=== PATIENT | male | born 1965 | race African-American/Black ===

== ENCOUNTER 2019-08-17 15:35 | Inpatient (IN) ==
[2019-08-17] MEDS ORDERED: THIAMINE INJ 100 MG, FOLIC ACID INJ 1 MG, MAGNESIUM SULF INJ 2 GM, MULTIVITAMIN INJ 10 ... IV STA (17:01)
[2019-08-17 18:09] LABS: Hemoglobin 10.9 GM/DL (14.0-18.0); Immature Granulocytes % 0.5 %; Immature Granulocytes Absolute 0.02 #; Lymphocytes # 0.6 10*3/uL (1.4-4.0); Lymphocytes % 13.3 % (21.2-54.2); Mean Corpuscular Volume 95.4 FL (87-102); Mean Platelet Volume 11.8 FL (9.6-12.0); Monocytes % 6.3 % (1.7-12.7); Neutrophils % 78.9 % (38.7-73.9); Platelet Count 58 T/CUMM (130-400); Red Blood Count 3.46 MC/CUMM (3.8-5.5); Red Cell Distribution Width 13.3 % (9.3-17.3); White Blood Count 4.1 T/CUMM (4-12)
[2019-08-17 18:18] LABS: PT Patient Result 10.8 SECS (9.6-12.2); Partial Thromboplastin Time 23.8 SECS (20.8-36.0)
[2019-08-17 18:28] LABS: Platelet Estimate Decreased
[2019-08-17 18:59] LABS: Alkaline Phosphatase 222 U/L (45-117); Calcium 8.5 MG/DL (8.5-10.1)
[2019-08-17 19:00] LABS: Alanine Aminotransferase 81 U/L (16-61); Albumin 3.4 G/DL (3.4-5.0); Aspartate Amino Transferase 101 U/L (0-37); Blood Urea Nitrogen 17 MG/DL (7-18); Estimated Glom Filtration Rate 96 ML/MIN; Glucose 171 MG/DL (74-106); Osmolality,Calculated 280.7 MOS/KG (273-304); Total Protein 6.9 G/DL (6.4-8.3)
[2019-08-17 19:01] LABS: Troponin I < 0.015 NG/ML (0.00-0.045)
[2019-08-17 19:10] LABS: Thyroid Stimulating Hormone 8.62 uIU/ml (0.358-3.74)
[2019-08-17 19:15] LABS: Free T4 (Free Thyroxine) 6.1 NG/DL (0.76-1.46)
[2019-08-17 19:27] LABS: Apearance,Urine Clear (Clear); Glucose,Urine (UA) 50 mg/dL (Negative); Ketones,Urine 80 mg/dL (Negative); Protein,Urine 100 MG/DL; Urine Color Yellow (Yellow)
[2019-08-17 19:28] LABS: Bacteria,Urine Occasional /HPF (Few); Bilirubin,Urine Negative (Negative); Blood, Urine Small mg/dL (Negative); Hyaline Casts,Urine 3 /LPF (0-3); Mucus,Urine Occasional /LPF (Occasional); Nitrite,Urine Negative (Negative); RBC,Urine 2 /HPF (0-4); Squamous Epithelial Cell,Urine Occasional /HPF (0-10); WBC,Urine 1 /HPF (0-6)
[2019-08-17 19:29] LABS: Barbiturates Screen,Urine Negative (Negative); Benzodiazepines Screen,Urine Negative (Negative); Cannabinoid Screen,Urine Negative (Negative); Opiate Screen,Urine Negative (Negative); Phencyclidine Screen,Urine Negative (Negative)
[2019-08-18] MEDS ORDERED: ONDANSETRON 4 MG/2 ML VIAL IV PRN (03:00)
[2019-08-18] MEDS ORDERED: LORazepam 2 MG/1 ML VIAL IV PRN (03:00)
[2019-08-18] MEDS ORDERED: traZODone 50 MG TABLET PO PRN (03:00)
[2019-08-18] MEDS ORDERED: ACETAMINOPHEN 325 MG TABLET PO PRN (03:04)
[2019-08-18] MEDS ORDERED: PROMETHAZINE 25 MG/1 ML VIAL IM PRN (03:04)
[2019-08-18 04:46] LABS: Basophils % 1.1 % (0.0-0.8); Eosinophils % 0.3 % (0.00-10.9); Hematocrit 26.8 VOL% (42.0-52.0); Hemoglobin 9.2 GM/DL (14.0-18.0); Immature Granulocytes % 0.6 %; Immature Granulocytes Absolute 0.02 #; Lymphocytes # 1.2 10*3/uL (1.4-4.0); Mean Corpuscular HGB Conc 34.3 GM/DL (32-36); Mean Corpuscular Volume 92.4 FL (87-102); Mean Platelet Volume 13.1 FL (9.6-12.0); Monocytes % 7.4 % (1.7-12.7); Neutrophils % 56.6 % (38.7-73.9); Red Cell Distribution Width 12.9 % (9.3-17.3); White Blood Count 3.5 T/CUMM (4-12)
[2019-08-18 04:49] LABS: Platelet Count 49 T/CUMM (130-400)
[2019-08-18 05:09] LABS: Bilirubin,Total 1.7 MG/DL (0.2-1.0); Calcium 8.5 MG/DL (8.5-10.1); Osmolality,Calculated 275.7 MOS/KG (273-304); Total Protein 6.1 G/DL (6.4-8.3)
[2019-08-18 05:12] LABS: Hypochromasia 1+; Platelet Estimate Decreased
[2019-08-18] MEDS: NICOTINE 21 MG/24 HR PATCH TRANSDERM PRN (05:38)
[2019-08-18] MEDS: SODIUM CHLORIDE 0.9% 1,000 ML IV SCH ×2 (05:38→12:18)
[2019-08-18] MEDS: chlordiazePOXIDE 25 MG CAPSULE PO SCH ×4 (05:41→21:35)
[2019-08-18] MEDS: QUEtiapine 100 MG TABLET PO SCH ×2 (05:42→21:35)
[2019-08-18] MEDS: CIPROFLOXACIN INJ 400 MG in PREMIX 1 EACH IV SCH ×2 (05:42→15:03)
[2019-08-18] MEDS ORDERED: MAGNESIUM SULF RIDER 2 GM in PREMIX 1 EACH IV PRN (08:02)
[2019-08-18] MEDS ORDERED: MAGNESIUM SULF RIDER 4 GM in PREMIX 1 EACH IV PRN (08:02)
[2019-08-18] MEDS: FERROUS SULFATE 325 MG TABLET PO SCH ×3 (10:59→21:35)
[2019-08-18] MEDS: CYPROHEPTADINE 4 MG TABLET PO SCH ×3 (11:00→16:14)
[2019-08-18] MEDS: FOLIC ACID 1 MG TABLET PO SCH (11:00)
[2019-08-18] MEDS: THIAMINE 100 MG TABLET PO SCH (11:00)
[2019-08-18] MEDS: POTASSIUM CHLORIDE 20 MEQ TABLET PO PRN ×2 (11:00→13:38)
[2019-08-18] MEDS: MULTIVITAMIN (CENTRUM) TABLET PO SCH (11:01)
[2019-08-18] MEDS ORDERED: THIAMINE INJ 100 MG, FOLIC ACID INJ 1 MG, MAGNESIUM SULF INJ 2 GM, MULTIVITAMIN INJ 10 ... IV SCH (17:30)
[2019-08-18] MEDS: HydrOXYzine PAMOATE 25 MG CAPSULE PO PRN (21:35)
[2019-08-18] MEDS: LORazepam 2 MG/1 ML VIAL IV PRN (22:36)
[2019-08-19 05:30] LABS: Basophils % 0.8 % (0.0-0.8); Eosinophils # 0.1 10*3/uL (0.0-0.87); Eosinophils % 1.3 % (0.00-10.9); Hematocrit 27.7 VOL% (42.0-52.0); Hemoglobin 9.6 GM/DL (14.0-18.0); Immature Granulocytes % 0.5 %; Immature Granulocytes Absolute 0.02 #; Lymphocytes # 1.2 10*3/uL (1.4-4.0); Lymphocytes % 31.2 % (21.2-54.2); Mean Corpuscular HGB Conc 34.7 GM/DL (32-36); Mean Platelet Volume 12.5 FL (9.6-12.0); Monocytes % 5.5 % (1.7-12.7); Neutrophils % 60.7 % (38.7-73.9); Red Blood Count 2.98 MC/CUMM (3.8-5.5); Red Cell Distribution Width 12.7 % (9.3-17.3); White Blood Count 3.9 T/CUMM (4-12)
[2019-08-19 05:40] LABS: Platelet Count 35 T/CUMM (130-400)
[2019-08-19] MEDS: chlordiazePOXIDE 25 MG CAPSULE PO SCH ×3 (05:48→21:38)
[2019-08-19] MEDS: CIPROFLOXACIN INJ 400 MG in PREMIX 1 EACH IV SCH ×2 (05:48→15:38)
[2019-08-19 06:07] LABS: Anisocytosis 1+; Hypochromasia 1+; Lymphocytes 36 % (20-55); Platelet Estimate Decreased; Segmented Neutrophils 61 % (50-85); Target Cells 1+; Total Cells Counted 100
[2019-08-19] MEDS: LORazepam 2 MG/1 ML VIAL IV PRN (06:25)
[2019-08-19] MEDS: FERROUS SULFATE 325 MG TABLET PO SCH ×3 (09:26→21:38)
[2019-08-19] MEDS: FOLIC ACID 1 MG TABLET PO SCH (09:26)
[2019-08-19] MEDS: MULTIVITAMIN (CENTRUM) TABLET PO SCH (09:26)
[2019-08-19] MEDS: THIAMINE 100 MG TABLET PO SCH (09:26)
[2019-08-19] MEDS: DOCUSATE SODIUM 100 MG CAPSULE PO PRN (09:26)
[2019-08-19] MEDS: CYPROHEPTADINE 4 MG TABLET PO SCH ×3 (09:34→15:40)
[2019-08-19] MEDS: SODIUM CHLORIDE 0.9% 1,000 ML IV SCH (09:42)
[2019-08-19] MEDS ORDERED: LEVOTHYROXINE 100 MCG VIAL IV ONE (10:13)
[2019-08-19] MEDS: QUEtiapine 100 MG TABLET PO SCH (21:38)
[2019-08-20] MEDS: CIPROFLOXACIN INJ 400 MG in PREMIX 1 EACH IV SCH (03:52)
[2019-08-20] MEDS: SODIUM CHLORIDE 0.9% 1,000 ML IV SCH ×5 (04:03→20:54)
[2019-08-20 05:14] LABS: Basophils % 0.6 % (0.0-0.8); Eosinophils # 0.1 10*3/uL (0.0-0.87); Eosinophils % 2.7 % (0.00-10.9); Hematocrit 28.9 VOL% (42.0-52.0); Hemoglobin 9.8 GM/DL (14.0-18.0); Immature Granulocytes % 0.3 %; Immature Granulocytes Absolute 0.01 #; Lymphocytes # 1.2 10*3/uL (1.4-4.0); Lymphocytes % 35.2 % (21.2-54.2); Mean Corpuscular HGB Conc 33.9 GM/DL (32-36); Mean Corpuscular Volume 92.3 FL (87-102); Monocytes % 6.9 % (1.7-12.7); Neutrophils % 54.3 % (38.7-73.9); Platelet Count 43 T/CUMM (130-400); Red Blood Count 3.13 MC/CUMM (3.8-5.5); Red Cell Distribution Width 12.4 % (9.3-17.3); White Blood Count 3.3 T/CUMM (4-12)
[2019-08-20 05:43] LABS: Calcium 8.7 MG/DL (8.5-10.1); Osmolality,Calculated 276.4 MOS/KG (273-304)
[2019-08-20 06:55] LABS: Anisocytosis 1+; Band Neutrophils 2 % (0-10); Eosinophils 3 % (0-10); Hypochromasia 1+; Lymphocytes 42 % (20-55); Segmented Neutrophils 46 % (50-85); Total Cells Counted 100
[2019-08-20 06:56] LABS: Platelet Estimate Decreased; Target Cells 1+
[2019-08-20] MEDS: CYPROHEPTADINE 4 MG TABLET PO SCH ×3 (08:51→16:40)
[2019-08-20] MEDS: FOLIC ACID 1 MG TABLET PO SCH (10:43)
[2019-08-20] MEDS: LEVOTHYROXINE 100 MCG TABLET PO SCH (10:44)
[2019-08-20] MEDS: chlordiazePOXIDE 25 MG CAPSULE PO SCH (10:44)
[2019-08-20] MEDS: MULTIVITAMIN (CENTRUM) TABLET PO SCH (10:44)
[2019-08-20] MEDS: THIAMINE 100 MG TABLET PO SCH (10:44)
[2019-08-20] MEDS: FERROUS SULFATE 325 MG TABLET PO SCH ×3 (10:44→21:32)
[2019-08-20] MEDS ORDERED: methylPREDNISolone SOD SUC 40 MG/1 ML VIAL IV ONE (13:04)
[2019-08-20] MEDS: metroNIDAZOLE 500 MG TABLET PO SCH ×2 (14:40→21:32)
[2019-08-20] MEDS: LORazepam 2 MG/1 ML VIAL IV PRN (18:42)
[2019-08-20] MEDS: POTASSIUM CHLORIDE 20 MEQ TABLET PO PRN (21:32)
[2019-08-20] MEDS: QUEtiapine 100 MG TABLET PO SCH (21:32)
[2019-08-20] MEDS: CIPROFLOXACIN 500 MG TABLET PO SCH (22:00)
[2019-08-21] MEDS: POTASSIUM CHLORIDE 20 MEQ TABLET PO PRN ×5 (01:00→17:06)
[2019-08-21 03:56] LABS: Basophils % 0.2 % (0.0-0.8); Eosinophils # 0.1 10*3/uL (0.0-0.87); Eosinophils % 0.9 % (0.00-10.9); Hematocrit 26.9 VOL% (42.0-52.0); Hemoglobin 9.2 GM/DL (14.0-18.0); Immature Granulocytes % 0.5 %; Immature Granulocytes Absolute 0.03 #; Lymphocytes # 1.3 10*3/uL (1.4-4.0); Lymphocytes % 23.6 % (21.2-54.2); Mean Corpuscular HGB Conc 34.2 GM/DL (32-36); Mean Corpuscular Volume 92.4 FL (87-102); Mean Platelet Volume 12.1 FL (9.6-12.0); Neutrophils % 66.8 % (38.7-73.9); Platelet Count 69 T/CUMM (130-400); Red Blood Count 2.91 MC/CUMM (3.8-5.5); White Blood Count 5.6 T/CUMM (4-12)
[2019-08-21 04:31] LABS: Calcium 8.8 MG/DL (8.5-10.1); Osmolality,Calculated 280.1 MOS/KG (273-304)
[2019-08-21 05:48] LABS: Eosinophils 1 % (0-10); Hypochromasia 2+; Lymphocytes 24 % (20-55); Platelet Estimate Decreased; Segmented Neutrophils 67 % (50-85); Total Cells Counted 100
[2019-08-21] MEDS: CYPROHEPTADINE 4 MG TABLET PO SCH ×3 (08:16→16:08)
[2019-08-21] MEDS: CIPROFLOXACIN 500 MG TABLET PO SCH ×2 (08:16→20:02)
[2019-08-21] MEDS: THIAMINE 100 MG TABLET PO SCH (08:16)
[2019-08-21] MEDS: metroNIDAZOLE 500 MG TABLET PO SCH ×2 (08:16→20:02)
[2019-08-21] MEDS: FERROUS SULFATE 325 MG TABLET PO SCH ×3 (08:16→20:02)
[2019-08-21] MEDS: FOLIC ACID 1 MG TABLET PO SCH (08:16)
[2019-08-21] MEDS: SODIUM CHLORIDE 0.9% 1,000 ML IV SCH ×3 (08:17→21:41)
[2019-08-21] MEDS: LEVOTHYROXINE 100 MCG TABLET PO SCH (08:21)
[2019-08-21] MEDS: MULTIVITAMIN (CENTRUM) TABLET PO SCH (08:21)
[2019-08-21] MEDS: POTASSIUM CHLORIDE 20 MEQ TABLET PO SCH ×2 (14:18→20:02)
[2019-08-21] MEDS: LORazepam 2 MG/1 ML VIAL IV PRN (19:54)
[2019-08-21] MEDS: HydrOXYzine PAMOATE 25 MG CAPSULE PO PRN (19:56)
[2019-08-21] MEDS: QUEtiapine 100 MG TABLET PO SCH (20:02)
[2019-08-22 05:30] LABS: Basophils % 0.7 % (0.0-0.8); Eosinophils # 0.1 10*3/uL (0.0-0.87); Eosinophils % 1.4 % (0.00-10.9); Hematocrit 27.9 VOL% (42.0-52.0); Hemoglobin 9.3 GM/DL (14.0-18.0); Immature Granulocytes % 0.5 %; Immature Granulocytes Absolute 0.03 #; Lymphocytes # 1.4 10*3/uL (1.4-4.0); Lymphocytes % 23.1 % (21.2-54.2); Mean Corpuscular HGB Conc 33.3 GM/DL (32-36); Mean Corpuscular Volume 95.2 FL (87-102); Mean Platelet Volume 11.4 FL (9.6-12.0); Monocytes % 14.6 % (1.7-12.7); Neutrophils % 59.7 % (38.7-73.9); Platelet Count 109 T/CUMM (130-400); Red Blood Count 2.93 MC/CUMM (3.8-5.5); Red Cell Distribution Width 13.1 % (9.3-17.3); White Blood Count 5.9 T/CUMM (4-12)
[2019-08-22] MEDS: SODIUM CHLORIDE 0.9% 1,000 ML IV SCH (05:50)
[2019-08-22 06:05] LABS: Albumin 2.8 G/DL (3.4-5.0); Bilirubin,Total 1.3 MG/DL (0.2-1.0); Calcium 8.5 MG/DL (8.5-10.1); Osmolality,Calculated 271.7 MOS/KG (273-304)
[2019-08-22] MEDS: LEVOTHYROXINE 100 MCG TABLET PO SCH (06:30)
[2019-08-22] MEDS: metroNIDAZOLE 500 MG TABLET PO SCH ×2 (09:55→21:32)
[2019-08-22] MEDS: MULTIVITAMIN (CENTRUM) TABLET PO SCH (09:55)
[2019-08-22] MEDS: CIPROFLOXACIN 500 MG TABLET PO SCH ×2 (09:55→21:32)
[2019-08-22] MEDS: THIAMINE 100 MG TABLET PO SCH ×3 (09:55→21:32)
[2019-08-22] MEDS: POTASSIUM CHLORIDE 20 MEQ TABLET PO SCH ×2 (09:55→21:31)
[2019-08-22] MEDS: FERROUS SULFATE 325 MG TABLET PO SCH ×3 (09:55→21:32)
[2019-08-22] MEDS: FOLIC ACID 1 MG TABLET PO SCH (09:55)
[2019-08-22] MEDS: CYPROHEPTADINE 4 MG TABLET PO SCH ×3 (09:55→18:43)
[2019-08-22] MEDS: chlordiazePOXIDE 25 MG CAPSULE PO PRN (15:30)
[2019-08-22] MEDS: QUEtiapine 100 MG TABLET PO SCH (21:31)
[2019-08-22] MEDS: HydrOXYzine PAMOATE 25 MG CAPSULE PO PRN (21:32)
[2019-08-23] MEDS: chlordiazePOXIDE 25 MG CAPSULE PO PRN ×2 (04:35→14:34)
[2019-08-23 06:21] LABS: Albumin 3.1 G/DL (3.4-5.0); Bilirubin,Total 0.8 MG/DL (0.2-1.0); Calcium 9.1 MG/DL (8.5-10.1); Osmolality,Calculated 275.4 MOS/KG (273-304); Total Protein 6.9 G/DL (6.4-8.3)
[2019-08-23 07:41] LABS: Basophils % 0.9 % (0.0-0.8); Eosinophils # 0.1 10*3/uL (0.0-0.87); Eosinophils % 1.8 % (0.00-10.9); Hematocrit 29.3 VOL% (42.0-52.0); Hemoglobin 9.9 GM/DL (14.0-18.0); Immature Granulocytes % 0.7 %; Immature Granulocytes Absolute 0.03 #; Lymphocytes # 1.1 10*3/uL (1.4-4.0); Lymphocytes % 24.6 % (21.2-54.2); Mean Corpuscular HGB Conc 33.8 GM/DL (32-36); Mean Corpuscular Volume 94.8 FL (87-102); Mean Platelet Volume 10.9 FL (9.6-12.0); Monocytes % 22.6 % (1.7-12.7); Neutrophils % 49.4 % (38.7-73.9); Platelet Count 163 T/CUMM (130-400); Red Blood Count 3.09 MC/CUMM (3.8-5.5); Red Cell Distribution Width 13.4 % (9.3-17.3); White Blood Count 4.6 T/CUMM (4-12)
[2019-08-23 08:00] LABS: Eosinophils 1 % (0-10); Lymphocytes 23 % (20-55); Platelet Estimate Adequate; Segmented Neutrophils 61 % (50-85); Total Cells Counted 100
[2019-08-23] MEDS: SODIUM CHLORIDE 0.9% 1,000 ML IV SCH ×4 (08:00→21:38)
[2019-08-23 08:01] LABS: Hypochromasia 1+
[2019-08-23] MEDS: DOCUSATE SODIUM 100 MG CAPSULE PO PRN (08:36)
[2019-08-23] MEDS: FERROUS SULFATE 325 MG TABLET PO SCH ×3 (08:36→21:37)
[2019-08-23] MEDS: CIPROFLOXACIN 500 MG TABLET PO SCH ×2 (08:36→21:38)
[2019-08-23] MEDS: FOLIC ACID 1 MG TABLET PO SCH (08:36)
[2019-08-23] MEDS: HydrOXYzine PAMOATE 25 MG CAPSULE PO PRN (08:37)
[2019-08-23] MEDS: CYPROHEPTADINE 4 MG TABLET PO SCH ×3 (08:37→16:04)
[2019-08-23] MEDS: metroNIDAZOLE 500 MG TABLET PO SCH ×2 (08:37→21:37)
[2019-08-23] MEDS: MULTIVITAMIN (CENTRUM) TABLET PO SCH (08:37)
[2019-08-23] MEDS: THIAMINE 100 MG TABLET PO SCH ×2 (08:37→21:38)
[2019-08-23] MEDS: LEVOTHYROXINE 100 MCG TABLET PO SCH (08:37)
[2019-08-23] MEDS: POTASSIUM CHLORIDE 20 MEQ TABLET PO SCH ×2 (08:39→21:37)
[2019-08-23] MEDS: QUEtiapine 100 MG TABLET PO SCH (21:37)
[2019-08-24 06:23] LABS: Eosinophils # 0.1 10*3/uL (0.0-0.87); Eosinophils % 2.2 % (0.00-10.9); Hematocrit 24.2 VOL% (42.0-52.0); Immature Granulocytes % 0.7 %; Immature Granulocytes Absolute 0.03 #; Lymphocytes # 1.6 10*3/uL (1.4-4.0); Lymphocytes % 38.9 % (21.2-54.2); Mean Corpuscular HGB Conc 33.1 GM/DL (32-36); Mean Corpuscular Volume 94.9 FL (87-102); Mean Platelet Volume 11.2 FL (9.6-12.0); Monocytes % 25.5 % (1.7-12.7); Neutrophils % 31.7 % (38.7-73.9); Platelet Count 211 T/CUMM (130-400); Red Blood Count 2.55 MC/CUMM (3.8-5.5); Red Cell Distribution Width 13.4 % (9.3-17.3); White Blood Count 4.1 T/CUMM (4-12)
[2019-08-24] MEDS: SODIUM CHLORIDE 0.9% 1,000 ML IV SCH ×2 (06:45→16:49)
[2019-08-24] MEDS: LEVOTHYROXINE 100 MCG TABLET PO SCH (06:46)
[2019-08-24] MEDS: ENOXAPARIN 30 MG/0.3 ML SYRINGE SUBCUT SCH ×2 (06:46→20:28)
[2019-08-24 06:48] LABS: Eosinophils 5 % (0-10); Hypochromasia 1+; Lymphocytes 31 % (20-55); Ovalocytes Slight; Platelet Estimate Adequate; Segmented Neutrophils 33 % (50-85); Total Cells Counted 100
[2019-08-24] MEDS: metroNIDAZOLE 500 MG TABLET PO SCH (08:55)
[2019-08-24] MEDS: CYPROHEPTADINE 4 MG TABLET PO SCH ×3 (08:55→16:29)
[2019-08-24] MEDS: CIPROFLOXACIN 500 MG TABLET PO SCH ×2 (08:56→20:23)
[2019-08-24] MEDS: FOLIC ACID 1 MG TABLET PO SCH (08:56)
[2019-08-24] MEDS: MULTIVITAMIN (CENTRUM) TABLET PO SCH (08:56)
[2019-08-24] MEDS: chlordiazePOXIDE 25 MG CAPSULE PO PRN ×3 (08:56→20:23)
[2019-08-24] MEDS: FERROUS SULFATE 325 MG TABLET PO SCH ×3 (08:56→20:24)
[2019-08-24] MEDS: POTASSIUM CHLORIDE 20 MEQ TABLET PO SCH ×2 (08:56→20:23)
[2019-08-24] MEDS: THIAMINE 100 MG TABLET PO SCH ×2 (08:56→20:23)
[2019-08-24] MEDS ORDERED: TUBERCULIN SKIN TEST 0.1 ML SYRINGE INTRADERM ONE (09:29)
[2019-08-24] MEDS: HydrOXYzine PAMOATE 25 MG CAPSULE PO PRN (11:29)
[2019-08-24] MEDS: QUEtiapine 100 MG TABLET PO SCH (20:24)
[2019-08-24] MEDS: METHOCARBAMOL 750 MG TABLET PO PRN (20:24)
[2019-08-25] MEDS: metroNIDAZOLE 500 MG TABLET PO SCH ×3 (01:50→20:41)
[2019-08-25 06:08] LABS: Basophils # 0.1 10*3/uL (0.0-0.2); Basophils % 1.1 % (0.0-0.8); Eosinophils # 0.1 10*3/uL (0.0-0.87); Hematocrit 24.8 VOL% (42.0-52.0); Hemoglobin 8.2 GM/DL (14.0-18.0); Immature Granulocytes % 0.5 %; Immature Granulocytes Absolute 0.02 #; Lymphocytes # 1.7 10*3/uL (1.4-4.0); Mean Corpuscular HGB Conc 33.1 GM/DL (32-36); Mean Corpuscular Volume 96.5 FL (87-102); Mean Platelet Volume 10.6 FL (9.6-12.0); Monocytes % 23.9 % (1.7-12.7); Neutrophils % 33.5 % (38.7-73.9); Platelet Count 270 T/CUMM (130-400); Red Blood Count 2.57 MC/CUMM (3.8-5.5); Red Cell Distribution Width 13.6 % (9.3-17.3); White Blood Count 4.4 T/CUMM (4-12)
[2019-08-25 06:28] LABS: Eosinophils 2 % (0-10); Hypochromasia 1+; Lymphocytes 43 % (20-55); Ovalocytes Slight; Platelet Estimate Adequate; Segmented Neutrophils 37 % (50-85); Total Cells Counted 100
[2019-08-25] MEDS: CYPROHEPTADINE 4 MG TABLET PO SCH ×3 (09:08→15:41)
[2019-08-25] MEDS: MULTIVITAMIN (CENTRUM) TABLET PO SCH (09:08)
[2019-08-25] MEDS: POTASSIUM CHLORIDE 20 MEQ TABLET PO SCH ×2 (09:09→20:42)
[2019-08-25] MEDS: LEVOTHYROXINE 100 MCG TABLET PO SCH (09:09)
[2019-08-25] MEDS: FERROUS SULFATE 325 MG TABLET PO SCH ×3 (09:09→20:42)
[2019-08-25] MEDS: FOLIC ACID 1 MG TABLET PO SCH (09:09)
[2019-08-25] MEDS: CIPROFLOXACIN 500 MG TABLET PO SCH ×2 (09:09→20:41)
[2019-08-25] MEDS: THIAMINE 100 MG TABLET PO SCH ×2 (09:09→20:42)
[2019-08-25] MEDS: SODIUM CHLORIDE 0.9% 1,000 ML IV SCH (09:57)
[2019-08-25] MEDS: QUEtiapine 100 MG TABLET PO SCH (20:40)
[2019-08-25] MEDS: METHOCARBAMOL 750 MG TABLET PO PRN (20:40)
[2019-08-25] MEDS: HydrOXYzine PAMOATE 25 MG CAPSULE PO PRN (20:40)
[2019-08-25] MEDS: ENOXAPARIN 30 MG/0.3 ML SYRINGE SUBCUT SCH (20:42)
[2019-08-26] MEDS: LEVOTHYROXINE 100 MCG TABLET PO SCH (09:56)
[2019-08-26] MEDS: POTASSIUM CHLORIDE 20 MEQ TABLET PO SCH ×2 (09:58→21:07)
[2019-08-26] MEDS: metroNIDAZOLE 500 MG TABLET PO SCH ×2 (09:58→21:08)
[2019-08-26] MEDS: FERROUS SULFATE 325 MG TABLET PO SCH ×3 (09:58→21:08)
[2019-08-26] MEDS: CYPROHEPTADINE 4 MG TABLET PO SCH ×3 (09:58→16:10)
[2019-08-26] MEDS: THIAMINE 100 MG TABLET PO SCH ×2 (09:58→21:08)
[2019-08-26] MEDS: MULTIVITAMIN (CENTRUM) TABLET PO SCH (09:58)
[2019-08-26] MEDS: CIPROFLOXACIN 500 MG TABLET PO SCH ×2 (09:58→21:08)
[2019-08-26] MEDS: FOLIC ACID 1 MG TABLET PO SCH (09:58)
[2019-08-26] MEDS: SODIUM CHLORIDE 0.9% 1,000 ML IV SCH ×3 (12:40→12:43)
[2019-08-26] MEDS: NICOTINE 21 MG/24 HR PATCH TRANSDERM PRN (21:07)
[2019-08-26] MEDS: ENOXAPARIN 30 MG/0.3 ML SYRINGE SUBCUT SCH (21:08)
[2019-08-26] MEDS: QUEtiapine 100 MG TABLET PO SCH (21:08)
[2019-08-26] MEDS: METHOCARBAMOL 750 MG TABLET PO PRN (21:08)
[2019-08-26] MEDS: HydrOXYzine PAMOATE 25 MG CAPSULE PO PRN (21:08)
[2019-08-27 05:50] LABS: Basophils # 0.1 10*3/uL (0.0-0.2); Basophils % 1.4 % (0.0-0.8); Eosinophils # 0.1 10*3/uL (0.0-0.87); Eosinophils % 1.8 % (0.00-10.9); Hematocrit 26.4 VOL% (42.0-52.0); Hemoglobin 8.6 GM/DL (14.0-18.0); Immature Granulocytes % 0.6 %; Immature Granulocytes Absolute 0.03 #; Lymphocytes # 2.1 10*3/uL (1.4-4.0); Lymphocytes % 42.1 % (21.2-54.2); Mean Corpuscular HGB Conc 32.6 GM/DL (32-36); Mean Corpuscular Volume 96.4 FL (87-102); Mean Platelet Volume 10.4 FL (9.6-12.0); Monocytes % 20.3 % (1.7-12.7); Neutrophils % 33.8 % (38.7-73.9); Platelet Count 317 T/CUMM (130-400); Red Blood Count 2.74 MC/CUMM (3.8-5.5); Red Cell Distribution Width 13.4 % (9.3-17.3); White Blood Count 5.1 T/CUMM (4-12)
[2019-08-27] MEDS: LEVOTHYROXINE 100 MCG TABLET PO SCH (05:54)
[2019-08-27 06:11] LABS: Albumin 2.4 G/DL (3.4-5.0); Bilirubin,Total 0.6 MG/DL (0.2-1.0); Calcium 8.2 MG/DL (8.5-10.1); Total Protein 5.4 G/DL (6.4-8.3)
[2019-08-27 06:38] LABS: Eosinophils 4 % (0-10); Hypochromasia 1+; Lymphocytes 43 % (20-55); Microcytosis 1+; Platelet Estimate Normal; Segmented Neutrophils 39 % (50-85); Total Cells Counted 100
[2019-08-27] MEDS: FOLIC ACID 1 MG TABLET PO SCH (09:17)
[2019-08-27] MEDS: CIPROFLOXACIN 500 MG TABLET PO SCH ×2 (09:18→22:05)
[2019-08-27] MEDS: metroNIDAZOLE 500 MG TABLET PO SCH ×2 (09:18→22:03)
[2019-08-27] MEDS: FERROUS SULFATE 325 MG TABLET PO SCH ×3 (09:18→22:05)
[2019-08-27] MEDS: MULTIVITAMIN (CENTRUM) TABLET PO SCH (09:18)
[2019-08-27] MEDS: POTASSIUM CHLORIDE 20 MEQ TABLET PO SCH ×2 (09:18→22:05)
[2019-08-27] MEDS: CYPROHEPTADINE 4 MG TABLET PO SCH ×3 (09:18→17:13)
[2019-08-27] MEDS: THIAMINE 100 MG TABLET PO SCH ×2 (09:18→22:04)
[2019-08-27] MEDS: NICOTINE 21 MG/24 HR PATCH TRANSDERM PRN (22:03)
[2019-08-27] MEDS: ENOXAPARIN 40 MG/0.4 ML SYRINGE SUBCUT SCH (22:04)
[2019-08-27] MEDS: QUEtiapine 100 MG TABLET PO SCH (22:04)
[2019-08-27] MEDS: HydrOXYzine PAMOATE 25 MG CAPSULE PO PRN (22:05)
[2019-08-27] MEDS: METHOCARBAMOL 750 MG TABLET PO PRN (22:05)
[2019-08-28] MEDS: LEVOTHYROXINE 100 MCG TABLET PO SCH (06:47)
[2019-08-28] MEDS: MULTIVITAMIN (CENTRUM) TABLET PO SCH (08:11)
[2019-08-28] MEDS: CYPROHEPTADINE 4 MG TABLET PO SCH ×3 (08:11→16:02)
[2019-08-28] MEDS: FOLIC ACID 1 MG TABLET PO SCH (08:11)
[2019-08-28] MEDS: metroNIDAZOLE 500 MG TABLET PO SCH ×2 (08:12→21:07)
[2019-08-28] MEDS: POTASSIUM CHLORIDE 20 MEQ TABLET PO SCH ×2 (08:12→21:07)
[2019-08-28] MEDS: CIPROFLOXACIN 500 MG TABLET PO SCH ×2 (08:12→21:06)
[2019-08-28] MEDS: FERROUS SULFATE 325 MG TABLET PO SCH ×3 (08:12→21:06)
[2019-08-28] MEDS: THIAMINE 100 MG TABLET PO SCH ×2 (08:12→21:07)
[2019-08-28] MEDS: QUEtiapine 100 MG TABLET PO SCH (21:07)
[2019-08-28] MEDS: ENOXAPARIN 40 MG/0.4 ML SYRINGE SUBCUT SCH (21:07)
[2019-08-29 05:34] LABS: Basophils # 0.1 10*3/uL (0.0-0.2); Eosinophils # 0.1 10*3/uL (0.0-0.87); Eosinophils % 1.5 % (0.00-10.9); Hematocrit 29.4 VOL% (42.0-52.0); Hemoglobin 9.6 GM/DL (14.0-18.0); Immature Granulocytes % 0.9 %; Immature Granulocytes Absolute 0.06 #; Lymphocytes # 2.6 10*3/uL (1.4-4.0); Lymphocytes % 40.6 % (21.2-54.2); Mean Corpuscular HGB Conc 32.7 GM/DL (32-36); Mean Platelet Volume 10.7 FL (9.6-12.0); Monocytes % 12.1 % (1.7-12.7); Neutrophils % 42.9 % (38.7-73.9); Platelet Count 386 T/CUMM (130-400); Red Cell Distribution Width 13.7 % (9.3-17.3); White Blood Count 6.5 T/CUMM (4-12)
[2019-08-29] MEDS: LEVOTHYROXINE 100 MCG TABLET PO SCH (07:16)
[2019-08-29] MEDS: CYPROHEPTADINE 4 MG TABLET PO SCH (08:13)
[2019-08-29] MEDS: FOLIC ACID 1 MG TABLET PO SCH (08:13)
[2019-08-29] MEDS: CIPROFLOXACIN 500 MG TABLET PO SCH (08:13)
[2019-08-29] MEDS: FERROUS SULFATE 325 MG TABLET PO SCH ×3 (08:13→21:33)
[2019-08-29] MEDS: ASPIRIN EC 81 MG TABLET PO SCH (08:13)
[2019-08-29] MEDS: MULTIVITAMIN (CENTRUM) TABLET PO SCH (08:13)
[2019-08-29] MEDS: POTASSIUM CHLORIDE 20 MEQ TABLET PO SCH ×2 (08:13→21:33)
[2019-08-29] MEDS: metroNIDAZOLE 500 MG TABLET PO SCH (08:13)
[2019-08-29] MEDS: THIAMINE 100 MG TABLET PO SCH ×2 (08:13→21:33)
[2019-08-29] MEDS: QUEtiapine 100 MG TABLET PO SCH (21:33)
[2019-08-29] MEDS: ENOXAPARIN 40 MG/0.4 ML SYRINGE SUBCUT SCH (21:34)
[2019-08-30] MEDS: LEVOTHYROXINE 100 MCG TABLET PO SCH (05:37)
[2019-08-30] MEDS: ASPIRIN EC 81 MG TABLET PO SCH (08:47)
[2019-08-30] MEDS: FOLIC ACID 1 MG TABLET PO SCH (08:47)
[2019-08-30] MEDS: THIAMINE 100 MG TABLET PO SCH ×2 (08:47→21:45)
[2019-08-30] MEDS: FERROUS SULFATE 325 MG TABLET PO SCH ×3 (08:48→21:46)
[2019-08-30] MEDS: MULTIVITAMIN (CENTRUM) TABLET PO SCH (08:48)
[2019-08-30] MEDS: POTASSIUM CHLORIDE 20 MEQ TABLET PO SCH ×2 (08:48→21:45)
[2019-08-30] MEDS: QUEtiapine 100 MG TABLET PO SCH (21:45)
[2019-08-30] MEDS: ENOXAPARIN 40 MG/0.4 ML SYRINGE SUBCUT SCH (21:46)
[2019-08-31] MEDS: LEVOTHYROXINE 100 MCG TABLET PO SCH (05:42)
[2019-08-31 05:59] LABS: Basophils # 0.1 10*3/uL (0.0-0.2); Basophils % 1.9 % (0.0-0.8); Eosinophils # 0.1 10*3/uL (0.0-0.87); Eosinophils % 1.6 % (0.00-10.9); Hematocrit 29.2 VOL% (42.0-52.0); Hemoglobin 9.6 GM/DL (14.0-18.0); Immature Granulocytes % 0.9 %; Immature Granulocytes Absolute 0.06 #; Lymphocytes # 2.6 10*3/uL (1.4-4.0); Lymphocytes % 38.5 % (21.2-54.2); Mean Corpuscular HGB Conc 32.9 GM/DL (32-36); Mean Corpuscular Volume 95.4 FL (87-102); Mean Platelet Volume 10.3 FL (9.6-12.0); Monocytes % 8.2 % (1.7-12.7); Neutrophils % 48.9 % (38.7-73.9); Platelet Count 350 T/CUMM (130-400); Red Blood Count 3.06 MC/CUMM (3.8-5.5); Red Cell Distribution Width 13.2 % (9.3-17.3); White Blood Count 6.7 T/CUMM (4-12)
[2019-08-31] MEDS: FERROUS SULFATE 325 MG TABLET PO SCH ×2 (08:22→14:54)
[2019-08-31] MEDS: THIAMINE 100 MG TABLET PO SCH (08:22)
[2019-08-31] MEDS: POTASSIUM CHLORIDE 20 MEQ TABLET PO SCH (08:22)
[2019-08-31] MEDS: FOLIC ACID 1 MG TABLET PO SCH (08:22)
[2019-08-31] MEDS: ASPIRIN EC 81 MG TABLET PO SCH (08:22)
[2019-08-31] MEDS: MULTIVITAMIN (CENTRUM) TABLET PO SCH (08:23)
[2019-08-31 15:47] VITALS: BP 108/72
== END 2019-08-31 18:58 | disposition home or self-care (01) | DRG 772 ==
LOC: N.ED 15:35 → SUATTDRO 08-18 00:34 → N.EDINP 08-18 00:34 → N.5E 08-18 02:18
PROVIDERS: ADMIT Internal Medicine; ATTEND Internal Medicine